=== PATIENT | female | born 1985 | race Two or more races ===

== ENCOUNTER 2020-02-22 17:19 | Emergency (ER) | payer MEDICAID, OTHER ==
[~2020-02-22] VITALS: Ht 152.4 cm; Wt 66.7 kg
[2020-02-22 19:06] VITALS: BP 157/84
[2020-02-22] MEDS ORDERED: LIDOCAINE VISCOUS 2% 15ML UD PO ONE (19:45)
[2020-02-22] MEDS ORDERED: KETOROLAC TROMETH 60MG/2ML VIAL IM ONE (19:45)
[2020-02-22] MEDS ORDERED: methylPREDNISolone SOD SUCC 125 MG/2 ML VL IM ONE (19:45)
[2020-02-22] MEDS ORDERED: LIDOCAINE 1% HCL (LOCAL ANESTH.) INJ 20ML MDV IJ ONE (19:45)
[2020-02-22] MEDS ORDERED: cefTRIAXone SOD 1,000 MG VL IM ONE (19:45)
== END 2020-02-22 21:20 | disposition home or self-care (01) ==
LOC: ER 17:19
DX: G51.0 Bell's palsy (principal); K12.0 Recurrent oral aphthae; H57.11 Ocular pain, right eye
CPT/HCPCS: 70450; 96372; 99284; J0696; J1885; J2930